=== PATIENT | female | born 1955 | race Caucasian/White ===

== ENCOUNTER 2018-09-19 11:57 | Emergency (ER) | payer MEDICARE, MEDICAID, SELFPAY ==
[2018-09-19 11:58] VITALS: BP 154/88; PULSE 89; RESP 18; TEMP 36.6; O2SAT 99; BMI 28.1
--- NOTE | 2018-09-19 12:35 | ED.DCSUM_ITS ---
- ER Visit Summary Date of Service: 09/19/18 Chief Complaint: Rash History of Present Illness: The patient is a 63 F who presents for evaluation of a rash. Patient has had a rash gradually worsening on the bilateral hands for the last 2 weeks. Patient states on September 10 she had a seizure from alcohol withdrawal and was hospitalized in [place]. At that time she was prescribed hydrocortisone cream at discharge. She states it is getting worse and the hydrocortisone cream is not helping. She has been trying Vaseline as well. The rash is itchy and painful, with some fluid oozing out of the dry cracks. Patient has tried Benadryl but it has not helped the itchiness. She denies rash anywhere else. No fever, joint pain, myalgias, chest pain, shortness of breath, nausea or vomiting, abdominal pain or any other complaints. She denies having this rash before. She used to get rashes on her hands when she washed with bleach but denies having her hand submerged in any cleaning fluids. She does not know of any exposures other than packing objects and boxes that had some mildew on them. Physical Examination: Vital signs: afebrile, hemodynamically stable, no hypoxia on room air General: well nourished, well developed, in no distress Skin: warm, dry, no pallor; bilateral hands have dry erythematous papular rash with coalescence on the dorsum of both hands, mild rash on the palms and palmar surface of the fingers. The MCP joints are spared on the right hand. Rash extends up to the mid forearm and becomes more scattered papules. Rash is dry with cracking of the skin, small amount of serous oozing noted. Dorsum of the hand has swelling with pitting edema. No rash present elsewhere on the body. HEENT: normocephalic and atraumatic; PERRL, EOMI, moist mucous membranes Cardiovascular: regular rate and rhythm without murmurs, no peripheral edema, 2+ pulses all distal extremities Respiratory: No increased work of breathing, lungs are clear to auscultation bilaterally, no rales, rhonchi or wheezing Abdominal: Abdomen is soft, nontender with normoactive bowel sounds, no guarding or rebound, no masses MSK: Moves all extremities, no deformities, normal strength Neuro: Awake and alert, oriented ?4. No facial droop, sensation and motor function intact and symmetric Test Results: [] Emergency Department Course and Treatment: Patient presents with a rash that is symmetric on the bilateral upper extremities from the forearms distally. It does appear most consistent with some sort of contact dermatitis, however no known exposure. Patient will be changed to an oral steroid. To prevent secondary infection, patient will be prescribed a topical antibiotic ointment. At time of discharge, patient told registration that she was concerned she had a vaginal and breast yeast infection. Discussed this with the patient, she denied having any other rash. She stated she forgot about it. She has a erythematous papular rash with satellite lesions under the left breast in the intertriginous region. This is consistent with a candidiasis. When asked about the concern for vaginal yeast infection, patient states she noticed white discharge in her underwear for the last 2 days. She denies any foul odor, dysuria, burning, itching or rash in the vaginal region. She has not had a yeast infection in many many years and did not described as cottage cheese in appearance. I discussed with her that this does not sound like an absolute yeast infection and it would require a pelvic examination. Patient declined a pelvic examination and did not want further workup for the vaginal complaint. Patient discharged home. Treatment Plan: [] Disposition: [] Impression: Bilateral hand and forearm dermatitis, left breast intertrigo This note was generated with [employer] dictation software. It may contain incorrect words, spelling, and punctuation that were not noted in review of the chart prior to signing ED Disposition - Plan for ED Patient: Chief Complaint: Rash Prescriptions: Prednisone 10 mg PO DAILY #63 tab Clotrimazole [Itch Relief] 15 gm TP BID 14 Days #1 cream..g.
[2018-09-19 13:01] VITALS: BP 147/93; PULSE 82; RESP 16; TEMP 36.8; O2SAT 97
--- NOTE | 2018-09-19 13:34 | ED.DEP ---
ED Disposition - Plan for ED Patient: Disposition: Home or Assisted Living Chief Complaint: Rash Instructions: ED Dermatitis Contact, ED Dermatitis Non Specific Rash, ED Candidiasis Cutaneous Prescriptions: Prednisone 10 mg PO DAILY #63 tab Bacitracin Ointment 1 applic TOPICAL BID #1 tube Clotrimazole [Itch Relief] 15 gm TP BID 14 Days #1 cream..g. Referrals: [facility] Doctor,Out of [Primary Care Provider] - As soon as possible Paulo Branham MD [CONSULTING PHYSICIAN] - As soon as possible Additional Instructions: Use the prednisone as prescribed. Wash your hands only as needed with gentle soap and warm water. You have been prescribed an antibiotic ointment to use over areas of cracking and bleeding. Otherwise keep the hands well moisturized with Vaseline or other similar product. Follow-up with dermatology. Use the clotrimazole cream for the rash under your left breast. If you have any worsening of your condition or any new concerning symptoms, please return immediately to the emergency department for another evaluation.
== END 2018-09-19 13:50 | disposition home or self-care (01) ==
PROVIDERS: Emergency Provider Emergency Medicine
DX: L30.9 Dermatitis, unspecified (principal); L30.4 Erythema intertrigo; Z72.89 Other problems related to lifestyle
CPT/HCPCS: 99282